=== PATIENT | male | born 1950 | race Caucasian/White ===

== ENCOUNTER → 2024-12-03 | Outpatient (CLI) | payer MEDICARE ==
[2024-12-03 16:11] LABS: PLATELET COUNT, AUTOMATED 194 10^3/uL (150-450)
[2024-12-03 16:22] LABS: ERYTHROCYTE SEDIMENTATION RATE 2 mm/hr (0-20)
== END ==
LOC: M LAB 15:40
PROVIDERS: ATTEND Ophthalmology
DX: H53.8 Other visual disturbances (principal)